=== PATIENT | female | born 1965 | race African-American/Black ===

== ENCOUNTER 2024-03-18 11:10 | Emergency (ER) | payer BC ==
[2024-03-18 13:48] LABS: Absolute Eosinophils 0.1 K/uL (0-0.5); Absolute Lymphocytes (CBC) 2.5 K/uL (0.7-4.9); Absolute Monocytes 0.5 K/uL (0.1-1.3); Absolute Neutrophil 2.5 K/uL (1.8-8.0); Basophils % 0.3 % (0-1.3); Eosinophils % 1.7 % (0-4.4); Hematocrit 31.9 % (36.0-45.0); Lymphocytes % 44.6 % (15.3-44.8); MCH 34.5 pg (27.0-35.0); MCHC 37.6 g/dL (32.0-36.0); MCV 91.7 fL (80-100); MPV 7.4 fL (7.6-11.3); Monocytes % 9.4 % (3.3-12.3); Nucleated Red Blood Cells % 0.2 % (0-0); Platelets 235 thou/uL (152-406); RBC Red Blood Cell Count 3.48 M/uL (3.86-4.86); Red Cell Distribution Width 15.1 % (12.1-15.2)
[2024-03-18 13:53] LABS: Specific Gravity 1.028 (1.005-1.030); Sqamous Epithelial <5 /HPF (None Seen); Urine Bacteria <20 /HPF (<20); Urine Bilirubin NEGATIVE (Negative); Urine Blood Negative (Negative); Urine Clarity Clear (Clear); Urine Color Yellow (Yellow); Urine Culture Reflex Order NOT NEEDED; Urine Glucose NEGATIVE (Negative); Urine Ketones NEGATIVE (Negative); Urine Microscopic Reflex YN ORDER UMIC; Urine Mucus 1+ /HPF (None Seen); Urine Nitrite NEGATIVE (Negative); Urine Protein NEGATIVE (Negative); Urine RBC None Seen /HPF (None Seen); Urine Urobilinogen Normal (Normal); Urine WBC <5 /HPF (<5); Urine pH 5.5 (5.0-7.0)
[2024-03-18 14:03] LABS: Albumin 3.7 g/dL (3.4-5.0); Albumin/Globulin Ratio 0.9 (1.1-1.8); Anion Gap 6.5 mEq/L (5.0-15.0); Globulin 4.1 g/dL (2.3-3.5); Potassium 3.5 mEq/L (3.5-5.1); Protein, Total 7.8 g/dL (6.4-8.2)
--- NOTE | 2024-03-18 14:39 | RAD REPORT ---
EXAMINATION: CT ABDOMEN AND PELVIS WITH CONTRAST CLINICAL INDICATION: abd cramping;Abd pain TECHNIQUE: CT abdomen and pelvis was performed, after the administration of IV contrast, as per depar [facility] protocol. Axial, sagittal and coronal reconstructions were obtained. One or more of the following dose reduction techniques were used: Automated exposure control, adjustment of the mA and k V according to patient size, and iterative reconstruction. Unless otherwise specified, incidental findings do not require dedicated imaging follow-up. COMPARISON: 12/08/2023 FINDINGS: LOWER CHEST: The visualized lung bases are clear. LIVER: Normal in size and contour. No focal lesion. Cholecystectomy clips. SPLEEN: Normal size. No focal lesion. PANCREAS: No mass, ductal dilation, or lupe-pancreatic fluid. ADRENALS: Normal; no mass. KIDNEYS: Normal size and contour. No hydronephrosis. GASTROINTESTINAL TRACT: No evidence of free air, significant intra-abdominal free fluid, bowel obstru ction or abscess. Moderate stool is retained throughout the colon. APPENDIX: Normal appendix. LYMPH NODES: No lymphadenopathy. MUSCULOSKELETAL: Mild lower lumbar spondylosis. ADDITIONAL FINDINGS: None. IMPRESSION: No acute or concerning abnormalities seen in the abdomen or pelvis. Moderate stool retention throughout the colon.
--- NOTE | 2024-03-18 15:27 | EDPHYS ---
Physician Documentation [facility] Name: Linh Gar Age: 58 yrs Sex: Female : 1965 Arrival Date: 03/18/2024 Time: 11:10 Bed 18 Private MD: ED Physician Duy Lo HPI: 03/18 14:04 This 58 yrs old Black Female presents to ER via Ambulatory with complaints of Abdominal sb4 Pain. 14:04 patient reports a vague abdominal cramping/tightness/pain/sensation in her sb4 periumbilical region that has been intermittent for the past few weeks. she reports a history of several abdominal surgeries, last was a hernia repair 1-2 years ago. she denies any nausea, vomiting, diarrhea, or constipation. last BM this morning. Historical: - Allergies: 11:43 PENICILLINS; ll1 - PMHx: 11:43 Diabetes mellitus; Hypertensive disorder; Hypothyroidism; ll1 - PSHx: 11:43 whipple, hernia repair; section; ll1 - Immunization history:: Adult Immunizations up to date. - Infectious Disease History:: Denies. - Social history:: Smoking status: Patient denies any tobacco usage or history of. ROS: 14:04 Constitutional: Negative for fever, chills, and weight loss, sb4 14:04 Abdomen/GI: Positive for abdominal pain, 14:04 All other systems are negative, Exam: 14:04 Constitutional: This is a well developed, well nourished patient who is awake, alert, sb4 and in no acute distress. Head/Face: Normocephalic, atraumatic. Eyes: Extra-ocular motions intact. Periorbital areas with no swelling, redness, or edema. ENT: Mucous membranes moist. Cardiovascular: Regular rate and rhythm with a normal S1 and S2. Respiratory: No increased work of breathing, no retractions or nasal flaring. Abdomen/GI: Soft, non-tender, no distension. Skin: Warm, dry with normal turgor. Normal color with no rashes, no lesions, and no evidence of cellulitis. Vital Signs: 11:41 BP 151 / 87; Pulse 71; Resp 17; Temp 97.2; Pulse Ox 100% ; Weight 79.38 kg; Height 5 ll1 ft. 5 in. ; Pain 5/10; 15:00 BP 150 / 85; Pulse 70; Resp 16; Pulse Ox 100% on R/A; db 11:41 Body Mass Index 29.12 (79.38 kg, 165.1 cm) ll1 11:41 Pain Scale: Adult ll1 MDM: 12:56 Medical Screening Exam initiated sb4 15:26 Data reviewed: vital signs, nurses notes, lab test result(s), radiologic studies, and sb4 as a result, I will discharge patient. Counseling: I had a detailed discussion with the patient and/or guardian regarding the historical points, exam findings, and any diagnostic results supporting the discharge/admit diagnosis, lab results, radiology results, to return to the emergency department if symptoms worsen or persist or if there are any questions or concerns that arise at home. 03/18 13:08 Order name: CBC with Diff; Complete Time: 14:10 sb4 03/18 13:08 Order name: CMP; Complete Time: 14:04 sb4 03/18 13:08 Order name: Lipase; Complete Time: 14:04 sb4 03/18 13:08 Order name: Urinalysis w/ reflexes; Complete Time: 13:54 sb4 03/18 13:08 Order name: CT Abd/Pelvis - IV Contrast Only; Complete Time: 14:40 sb4 03/18 13:08 Order name: IV Saline Lock; Complete Time: 13:55 sb4 03/18 13:08 Order name: Labs collected and sent; Complete Time: 13:55 sb4 Administered Medications: No medications were administered Disposition Summary: 03/18/24 15:26 Discharge Ordered Notes: Location: Home sb4 Problem: an ongoing problem sb4 Symptoms: are unchanged sb4 Condition: Stable sb4 Diagnosis - Abdominal pain, Generalized sb4 - Constipation, unspecified sb4 Followup: sb4 - With: Private Physician - When: As needed - Reason: Recheck today's complaints, Re-evaluation by your physician Discharge Instructions: - Discharge Summary Sheet sb4 - Constipation, Adult sb4 - High-Fiber Eating Plan sb4 - Abdominal Pain, Adult, [id number] sb4 Forms: - Patient Portal Instructions sb4 - Leadership Thank You Letter sb4 Signatures: Dispatcher [employer] Raquel Alaniz RN RN ll1 Chari Gallegos RN RN Argentina Izaguirre PA-C PA-C sb4 Corrections: (The following items were deleted from the chart) 11:43 Allergies: PENICILLINS; ll1 ll1 :43 PMHx: Diabetes mellitus; ll1 ll1 :43 PMHx: Hypertensive disorder; ll1 ll1 : PMHx: Hypothyroidism; ll1 ll1 11:43 PSHx: Coronary Angioplasty; ll1 ll1
--- NOTE | 2024-03-18 15:27 | ER ---
Nurse's Notes [facility] Name: Linh Gar Age: 58 yrs Sex: Female : 1965 Arrival Date: 03/18/2024 Time: 11:10 Bed 18 Private MD: Diagnosis: Abdominal pain, Generalized;Constipation, unspecified Presentation: 03/18 11:41 Chief complaint: Patient states: Stomach pressure off/on for 2-3 weeks, worse since ll1 last night. Coronavirus screen: Client denies travel out of the [place] in the last 14 days. At this time, the client does not indicate any symptoms associated with coronavirus-19. Ebola Screen: Patient denies travel to an Ebola-affected area in the 21 days before illness onset. Onset of symptoms was February 28, 2024. 11:41 Method Of Arrival: Ambulatory ll1 12:04 Acuity: ZOYA 3 iw 12:04 Initial Sepsis Screen: Does the patient meet any 2 criteria? No. Patient's initial iw sepsis screen is negative. Does the patient have a suspected source of infection? No. Patient's initial sepsis screen is negative. Risk Assessment: Do you want to hurt yourself or someone else? Patient reports no desire to harm self or others. Triage Assessment: 11:41 General: Appears uncomfortable, Behavior is calm, cooperative, appropriate for age. ll1 Pain: Complains of pain in abdomen. GI: Reports lower abdominal pain, upper abdominal pain. Historical: - Allergies: 11:43 PENICILLINS; ll1 - PMHx: 11:43 Diabetes mellitus; Hypertensive disorder; Hypothyroidism; ll1 - PSHx: 11:43 whipple, hernia repair; section; ll1 - Immunization history:: Adult Immunizations up to date. - Infectious Disease History:: Denies. - Social history:: Smoking status: Patient denies any tobacco usage or history of. Screenin:38 [facility] ED Fall Risk Assessment (Adult) History of falling in the last 3 months, db including since admission No falls in past 3 months (0 pts) Confusion or Disorientation No (0 pts) Intoxicated or Sedated No (0 pts) Impaired Gait No (0 pts) Mobility Assist Device Used No (0 pt) Altered Elimination No (0 pt) Score/Fall Risk Level 0 - 2 = Low Risk Oriented to surroundings, Maintained a safe environment. Abuse screen: Denies threats or abuse. Denies injuries from another. Nutritional screening: No deficits noted. Tuberculosis screening: No symptoms or risk factors identified. Assessment: 13:38 Reassessment: Patient appears in no apparent distress at this time. Patient and/or db family updated on plan of care and expected duration. Pain level reassessed. Patient is alert, oriented x 3, equal unlabored respirations, skin warm/dry/pink. General: Appears in no apparent distress. comfortable, Behavior is calm, cooperative. Pain: Complains of pain in abdomen. Neuro: Level of Consciousness is awake, alert, obeys commands, Oriented to person, place, time, situation. 15:39 Reassessment: Patient appears in no apparent distress at this time. Patient and/or db family updated on plan of care and expected duration. Pain level reassessed. Patient is alert, oriented x 3, equal unlabored respirations, skin warm/dry/pink. Patient states feeling better. Vital Signs: 11:41 BP 151 / 87; Pulse 71; Resp 17; Temp 97.2; Pulse Ox 100% ; Weight 79.38 kg; Height 5 ll1 ft. 5 in. ; Pain 5/10; 15:00 BP 150 / 85; Pulse 70; Resp 16; Pulse Ox 100% on R/A; db 11:41 Body Mass Index 29.12 (79.38 kg, 165.1 cm) ll1 11:41 Pain Scale: Adult ll1 ED Course: 11:15 Patient arrived in ED. al6 12:04 Argentina Barajas [facility] sb4 12:04 Duy Lo MD is Attending Physician. sb4 12:04 Triage completed. iw 12:04 Arm band placed on. iw 12:55 Patient placed in an exam room, on a stretcher. ll1 13:07 Chari Gallegos, ANNA is Primary Nurse. db 13:37 Initial lab(s) drawn, by me, sent to lab. Inserted saline lock: 22 gauge in left db antecubital area, using aseptic technique. Blood collected. Flushed with 10 mL NS. 14:29 CT Abd/Pelvis - IV Contrast Only In Process Unspecified. EDMS 15:39 Patient has correct armband on for positive identification. Bed in low position. Call db light in reach. Side rails up X 1. Provided Education on: DISCHARGE AND FOLLOWUP. Pulse ox on. NIBP on. Warm blanket given. 15:39 No provider procedures requiring assistance completed. IV discontinued, intact, db bleeding controlled. Administered Medications: No medications were administered Medication: 13:38 VIS not applicable for this client. db Outcome: 15:26 Discharge ordered by MD. bird 15:39 Discharged to home ambulatory, with family, db 15:39 Condition: stable 15:39 Discharge instructions given to patient, family, Instructed on discharge instructions, follow up and referral plans. 15:40 Patient left the ED. db Signatures: Dispatcher [employer] EDMS Keily Gar RN ANNA iw Raquel Ding RN RN ll1 Chari Gallegos RN RN Argentina Izaguirre, PACiara PAShanika Zeng Corrections: (The following items were deleted from the chart) 11:44 11:43 Allergies: PENICILLINS; ll1 ll1 11:44 11:43 PMHx: Diabetes mellitus; ll1 ll1 11:44 11:43 PMHx: Hypertensive disorder; ll1 ll1 11:44 11:43 PMHx: Hypothyroidism; ll1 ll1 11:44 11:43 PSHx: Coronary Angioplasty; ll1 ll1
[2024-03-18 15:53] VITALS: TEMP 97.2; O2SAT 100
[2024-03-18 16:00] VITALS: BP 150/85
== END 2024-03-18 15:40 | disposition home or self-care (01) ==
LOC: ER 11:10
DX: K59.00 Constipation, unspecified (principal)
CPT/HCPCS: 85025; 81001; 36415; 83690; 80053; 74177; 99284; Q9967

== ENCOUNTER 2024-04-25 11:41 | Emergency (ER) | payer BC ==
[2024-04-25] MEDS ORDERED: ONDANSETRON 4 MG/2 ML VIAL ONE (12:17)
[2024-04-25] MEDS ORDERED: LORazepam 2 MG/ML VIAL ONE (12:17)
[2024-04-25] MEDS ORDERED: BISACODYL 10 MG RECTAL SUPP ONE (12:20)
[2024-04-25] MEDS ORDERED: LACTULOSE 20 GM/30 ML UCUP ONE (12:20)
[2024-04-25] MEDS ORDERED: NA CHLORIDE 0.9% 1,000 ML ONE (12:20)
[2024-04-25] MEDS ORDERED: FAMOTIDINE 20 MG/2 ML VIAL IV ONE (12:20)
--- NOTE | 2024-04-25 12:27 | RAD REPORT ---
EXAMINATION: ONE VIEW CHEST XR CLINICAL INDICATION: Female, 58 years old.,Abdominal distention;Palpitations TECHNIQUE: Frontal chest projection is submitted. Examination is limited by patient positioning and t echnique. COMPARISON: No prior exam. FINDINGS: The lungs are well inflated and clear. No pneumothorax or sizable effusion. The heart is normal in s ize. Mediastinal contours are unremarkable. IMPRESSION: No acute intrathoracic abnormalities.
[2024-04-25 12:41] LABS: Absolute Eosinophils 0.1 K/uL (0-0.5); Absolute Lymphocytes (CBC) 2.3 K/uL (0.7-4.9); Absolute Monocytes 0.5 K/uL (0.1-1.3); Absolute Neutrophil 2.1 K/uL (1.8-8.0); Basophils % 0.5 % (0-1.3); Eosinophils % 1.9 % (0-4.4); Hematocrit 40.8 % (36.0-45.0); Hemoglobin 13.5 g/dL (12.0-15.0); Lymphocytes % 46.5 % (15.3-44.8); MCH 27.4 pg (27.0-35.0); MCHC 33.2 g/dL (32.0-36.0); MCV 82.7 fL (80-100); MPV 7.4 fL (7.6-11.3); Neutrophils % 42.1 % (41.7-73.7); Nucleated Red Blood Cells % 0.1 % (0-0); Platelets 251 thou/uL (152-406); RBC Red Blood Cell Count 4.93 M/uL (3.86-4.86); Red Cell Distribution Width 15.3 % (12.1-15.2)
[2024-04-25 12:54] LABS: PT Prothrombin Time 12.6 SECONDS (9.4-12.5); Protime INR 1.2
[2024-04-25 13:12] LABS: Albumin 3.8 g/dL (3.4-5.0); Albumin/Globulin Ratio 0.9 (1.1-1.8); Bilirubin Direct 0.3 mg/dL (0-0.2); Bilirubin Indirect, Calculated 0.8 mg/dL (0.2-0.8); Bilirubin Total 1.1 mg/dL (0.2-1.0); Globulin 4.3 g/dL (2.3-3.5); Protein, Total 8.1 g/dL (6.4-8.2); Thyroid Stimulating Hormone 3.06 uIU/mL (0.358-3.740); Troponin High Sensitivity 3.9 pg/mL (<58.9)
[2024-04-25] MEDS ORDERED: CALCIUM GLUCONATE 1 GM IVPB 1 GM/50 ML BAG IV ONE (14:19)
--- NOTE | 2024-04-25 14:32 | RAD REPORT ---
EXAMINATION: CT ABDOMEN AND PELVIS WITH CONTRAST CLINICAL INDICATION: Female, 58 years old.ABD PAIN TECHNIQUE: CT abdomen and pelvis was performed, after the administration of IV contrast, [facility]. Axial, sagittal and coronal reconstructions were obtained. One or more of the following dose reduction techniques were used: Automated exposure control, adjustment of the mA and/o r kV according to patient size, and/or iterative reconstruction. Unless otherwise specified, incidental findings do not require dedicated imaging follow-up. [id number]. COMPARISON: 03/18/2024 FINDINGS: LOWER CHEST: No acute process identified.Small pericardial effusion. Multivessel coronary artery calc ifications. UPPER GI: Gastrojejunostomy. Whipple procedure. LIVER: No significant focal abnormality. GALLBLADDER/BILE DUCTS: Cholecystectomy. No significant biliary ductal dilatation.?Similar pneumobili a. PANCREAS: Resection of the pancreatic head. No pancreatic duct dilatation. Atrophic residual pancreas .. SPLEEN: Unremarkable. ADRENALS: No adrenal masses. KIDNEYS AND URETERS: No hydronephrosis.No suspicious renal mass. ABDOMINAL AORTA AND OTHER VESSELS: Mild atherosclerotic changes. PERITONEUM: No abnormal free fluid. No free air. LYMPH NODES: No pathologic lymphadenopathy. ABDOMINAL WALL: Unremarkable SMALL BOWEL/COLON: Small bowel has normal course and caliber. No colonic wall thickening or pericolon ic inflammatory changes.Normal appendix. URINARY BLADDER: Underdistended but grossly unremarkable. REPRODUCTIVE ORGANS: Uterus surgically absent. No adnexal abnormality. MUSCULOSKELETAL: No acute or suspicious osseous abnormality. ADDITIONAL FINDINGS: None. IMPRESSION: No acute or significant abnormalities seen in the abdomen or pelvis.
--- NOTE | 2024-04-25 14:53 | ER ---
[facility]'s Notes [facility] Name: Linh Gar Age: 58 yrs Sex: Female : 1965 Arrival Date: 04/25/2024 Time: 11:41 Bed 3 Private MD: Diagnosis: Low back pain;Constipation;Hypokalemia;Type 2 diabetes mellitus with hyperglycemia Presentation: 04/25 12:06 Chief complaint: Patient states: she started manjaro x2 weeks ago and started with kc6 lower back and abd pain on Wednesday. states she is nauseated but can't vomit. last BM x 5 days ago. Coronavirus screen: At this time, the client does not indicate any symptoms associated with coronavirus-19. Ebola Screen: No symptoms or risks identified at this time. Initial Sepsis Screen: Does the patient meet any 2 criteria? No. Patient's initial sepsis screen is negative. Does the patient have a suspected source of infection? No. Patient's initial sepsis screen is negative. Risk Assessment: Do you want to hurt yourself or someone else? Patient reports no desire to harm self or others. Onset of symptoms was April 25, 2024. 12:06 Method Of Arrival: Ambulatory 6 12:06 Acuity: ZOYA 3 kc6 Historical: - Allergies: 12:08 PENICILLINS; kc6 - PMHx: 12:08 Hypothyroidism; Hypertensive disorder; diabetes mellitus; Hypercholesterolemia; kc6 - PSHx: 12:08 section; whipple; Cholecystectomy; Thyroidectomy; hysterectomy; kc6 - Immunization history:: Adult Immunizations up to date. - Infectious Disease History:: Denies. - Social history:: Smoking status: Reported history of juuling and/or vaping. Screenin:09 [facility] ED Fall Risk Assessment (Adult) History of falling in the last 3 months, kc6 including since admission No falls in past 3 months (0 pts) Confusion or Disorientation No (0 pts) Intoxicated or Sedated No (0 pts) Impaired Gait No (0 pts) Mobility Assist Device Used No (0 pt) Altered Elimination No (0 pt) Score/Fall Risk Level 0 - 2 = Low Risk Oriented to surroundings, Maintained a safe environment, Educated pt \T\ family on fall prevention, incl call for assistance when getting out of bed. Abuse screen: Denies threats or abuse. Denies injuries from another. Nutritional screening: No deficits noted. Tuberculosis screening: No symptoms or risk factors identified. Assessment: 12:22 General: Appears in no apparent distress. uncomfortable, well groomed, well developed, kc6 Behavior is cooperative, anxious, crying. Pain: Complains of pain in back and abdomen diffusely Quality of pain is described as dull, heavy, pressure. Neuro: Level of Consciousness is awake, alert, obeys commands, Oriented to person, place, time, situation, Appropriate for age. Cardiovascular: Capillary refill < 3 seconds. Respiratory: Airway is patent Trachea midline Respiratory effort is even, unlabored, Respiratory pattern is regular, symmetrical. GI: Abdomen is flat, non-distended, Last BM was April 20, 2024. Reports lower abdominal pain, upper abdominal pain, constipation, nausea, Patient currently denies diarrhea, vomiting. : No signs and/or symptoms were reported regarding the genitourinary system. EENT: No signs and/or symptoms were reported regarding the EENT system. Derm: No signs and/or symptoms reported regarding the dermatologic system. Skin is intact, is healthy with good turgor, Skin is pink, warm \T\ dry. Musculoskeletal: No signs and/or symptoms reported regarding the musculoskeletal system. Circulation, motion, and sensation intact. Range of motion: intact in all extremities. 14:24 Reassessment: Patient appears in no apparent distress at this time. No changes from kc6 previously documented assessment. Patient and/or family updated on plan of care and expected duration. Pain level reassessed. Patient is alert, oriented x 3, equal unlabored respirations, skin warm/dry/pink. Patient states feeling better. Patient states symptoms have improved. Vital Signs: 12:06 BP 139 / 73; Pulse 75; Resp 18 S; Pulse Ox 99% on R/A; Weight 77.11 kg (R); Height 5 kc6 ft. 4 in. (R); 14:54 BP 140 / 82; Pulse 58; Resp 16 S; Temp 98.3(O); Pulse Ox 98% on R/A; Pain 0/10; kc6 12:06 Body Mass Index 29.18 (77.11 kg, 162.56 cm) [facility] 14:54 Pain Scale: Adult [facility] ED Course: 11:45 Patient arrived in ED. ra3 11:50 Pelon Ventura MD is Attending Physician. johanna 12:06 Fabiana Cid RN is Primary Nurse. kc6 12:08 Triage completed. kc6 12:08 Arm band placed on. kc6 12:08 Patient maintains SpO2 saturation greater than 95% on room air. kc6 12:09 Patient has correct armband on for positive identification. Bed in low position. Call kc6 light in reach. Side rails up X 1. Pulse ox on. NIBP on. Door closed. Noise minimized. Lights dimmed. Pillow given. 12:22 XRAY Chest (1 view) In Process Unspecified. EDMS 12:22 EKG done, by ED staff, reviewed by Pelon Ventura MD. kc6 13:13 Assisted to bathroom. kc6 14:19 CT Abd/Pelvis - PO and IV Contrast In Process Unspecified. EDMS 14:52 Buddy Brand MD is Referral Physician. johanna 15:13 No provider procedures requiring assistance completed. IV discontinued, intact, kc6 bleeding controlled, No redness/swelling at site. Pressure dressing applied. Administered Medications: 12:41 Drug: NS 0.9% IV 1000 ml IV at 1000 ml once; to be given as a bolus over 60 minutes kc6 Route: IV; Rate: 1000 ml; Site: left antecubital; 15:12 Follow up: Response: No adverse reaction; IV Status: Completed infusion; IV Intake: kc6 1000ml 12:41 Drug: Ondansetron IVP 4 mg IVP once; over 2 minutes Route: IVP; Site: left antecubital; kc6 13:27 Follow up: Response: No adverse reaction; Nausea is decreased kc6 12:41 Drug: Famotidine IVP 20 mg IVP once; dilute with 10 mL 0.9% NaCl; give over 2 minutes kc6 Route: IVP; Site: left antecubital; 13:27 Follow up: Response: No adverse reaction kc6 12:42 Drug: Ativan IVP 1 mg IVP once Route: IVP; Site: left antecubital; kc6 13:26 Follow up: Response: No adverse reaction; Anxiety decreased; RASS: Alert and Calm (0) kc6 12:42 Drug: Lactulose PO 30 grams 45 ml PO once Volume: 45 ml; Route: PO; kc6 13:27 Follow up: Response: No adverse reaction kc6 12:58 Drug: Dulcolax TX Suppository 10 mg TX once Route: TX; kc6 13:27 Follow up: Response: No adverse reaction kc6 14:23 Drug: Calcium Gluconate IVPB 1 grams IVPB once over 60 mins; (mix in NS 100 mL) Route: kc6 IVPB; Infused Over: 60 mins; Site: left antecubital; 14:54 Follow up: Response: No adverse reaction; IV Status: Completed infusion; IV Intake: [id number] Medication: 15:13 VIS not applicable for this client. kc6 Intake: 14:54 IV: 50ml; Total: 50ml. kc6 15:12 IV: 1000ml; Total: 1050ml. kc6 Outcome: 14:52 Discharge ordered by . johanna 15:13 Discharged to home ambulatory, with family, kc6 15:13 Condition: improved 15:13 Discharge instructions given to patient, Instructed on discharge instructions, follow up and referral plans. medication usage, Demonstrated understanding of instructions, follow-up care, medications, Prescriptions given X 4, 15:13 Patient left the ED. kc6 Signatures: Dispatcher [employer] EDPelon Ang MD MD cha Campbell, Kaitlyn, RN RN kc6 Lilian Baird ra3
--- NOTE | 2024-04-25 14:53 | EDPHYS ---
Physician Documentation [facility] Name: Linh Gar Age: 58 yrs Sex: Female : 1965 Arrival Date: 04/25/2024 Time: 11:41 Bed 3 Private MD: ED Physician Pelon Ventura HPI: 04/25 12:23 This 58 yrs old Black Female presents to ER via Ambulatory with complaints of Low Back johanna Pain. 12:23 The patient presents with pain that is acute, with no known mechanism of injury. johanna Historical: - Allergies: 12:08 PENICILLINS; kc6 - PMHx: 12:08 Hypothyroidism; Hypertensive disorder; diabetes mellitus; Hypercholesterolemia; kc6 - PSHx: 12:08 section; whipple; Cholecystectomy; Thyroidectomy; hysterectomy; kc6 - Immunization history:: Adult Immunizations up to date. - Infectious Disease History:: Denies. - Social history:: Smoking status: Reported history of juuling and/or vaping. ROS: 12:24 Constitutional: Negative for fever, chills, and weight loss, Eyes: Negative for injury, johanna pain, redness, and discharge, ENT: Negative for injury, pain, and discharge, Neck: Negative for injury, pain, and swelling, Respiratory: Negative for shortness of breath, cough, wheezing, and pleuritic chest pain, Back: Negative for injury and pain, : Negative for injury, bleeding, discharge, and swelling, MS/Extremity: Negative for injury and deformity, Skin: Negative for injury, rash, and discoloration, Neuro: Negative for headache, weakness, numbness, tingling, and seizure, Allergy/Immunology: Negative for hives, rash, and allergies, Endocrine: Negative for neck swelling, polydipsia, polyuria, polyphagia, and marked weight changes, Hematologic/Lymphatic: Negative for swollen nodes, abnormal bleeding, and unusual bruising, 12:24 Cardiovascular: Positive for palpitations, 12:24 Abdomen/GI: Positive for abdominal pain, constipation, abdominal cramps, abdominal distension, 12:24 Back: Positive for pain at rest, 12:24 Neuro: Positive for weakness, 12:24 Psych: Positive for anxiety, Exam: 12:24 Constitutional: This is a well developed, well nourished patient who is awake, alert, johanna and in no acute distress. Head/Face: Normocephalic, atraumatic. Eyes: Pupils equal round and reactive to light, extra-ocular motions intact. Lids and lashes normal. Conjunctiva and sclera are non-icteric and not injected. Cornea within normal limits. Periorbital areas with no swelling, redness, or edema. ENT: Nares patent. No nasal discharge, no septal abnormalities noted. Tympanic membranes are normal and external auditory canals are clear. Oropharynx with no redness, swelling, or masses, exudates, or evidence of obstruction, uvula midline. Mucous membranes moist. Neck: Trachea midline, no thyromegaly or masses palpated, and no cervical lymphadenopathy. Supple, full range of motion without nuchal rigidity, or vertebral point tenderness. No Meningismus. Chest/axilla: Normal chest wall appearance and motion. Nontender with no deformity. No lesions are appreciated. Cardiovascular: Regular rate and rhythm with a normal S1 and S2. No gallops, murmurs, or rubs. Normal PMI, no JVD. No pulse deficits. Respiratory: Lungs have equal breath sounds bilaterally, clear to auscultation and percussion. No rales, rhonchi or wheezes noted. No increased work of breathing, no retractions or nasal flaring. Back: No spinal tenderness. No costovertebral tenderness. Full range of motion. Skin: Warm, dry with normal turgor. Normal color with no rashes, no lesions, and no evidence of cellulitis. MS/ Extremity: Pulses equal, no cyanosis. Neurovascular intact. Full, normal range of motion., bilateral aka Neuro: Awake and alert, GCS 15, oriented to person, place, time, and situation. Cranial nerves II-XII grossly intact. Motor strength 5/5 in all extremities. Sensory grossly intact. Cerebellar exam normal. Normal gait. Psych: Awake, alert, with orientation to person, place and time. Behavior, mood, and affect are within normal limits. 12:24 ECG was reviewed by the Attending Physician. 12:24 Abdomen/GI: Inspection: abdomen appears normal, Bowel sounds: normal, Palpation: moderate abdominal tenderness, in all quadrants, Liver: no appreciated palpable abnormalities, Hernia: not appreciated, Vital Signs: 12:06 BP 139 / 73; Pulse 75; Resp 18 S; Pulse Ox 99% on R/A; Weight 77.11 kg (R); Height 5 6 ft. 4 in. (R); 14:54 BP 140 / 82; Pulse 58; Resp 16 S; Temp 98.3(O); Pulse Ox 98% on R/A; Pain 0/10; kc6 12:06 Body Mass Index 29.18 (77.11 kg, 162.56 cm) [facility] 14:54 Pain Scale: Adult 6 MDM: 11:50 Medical Screening Exam initiated [facility] 12:26 Differential diagnosis: fracture, sciatica, Herniated disc UTI, bowel obstruction, johanna coronary artery disease, gastritis. Data reviewed: vital signs, nurses notes, lab test result(s), EKG, radiologic studies, CT scan, plain films. Consideration of Admission/Observation Escalation of care including admission/observation considered. I considered the following discharge prescriptions or medication management in the emergency department Medications were administered in the Emergency Department. See MAR. Independent interpretation of the following test(s) in the Emergency Department EKG: See my EKG interpretation above. Historians other than the Patient: pt well informed. Care significantly affected by the following chronic conditions: Hypertension, Obesity, hypothyroid. 04/25 12:05 Order name: Basic Metabolic Panel; Complete Time: 13:19 [facility] 04/25 12:05 Order name: CBC with Diff; Complete Time: 13:19 [facility] 04/25 12:05 Order name: LFT's; Complete Time: 13:19 [facility] 04/25 12:05 Order name: Magnesium; Complete Time: 13:19 [facility] 04/25 12:05 Order name: NT PRO-BNP; Complete Time: 13:19 [facility] 04/25 12:05 Order name: PT-INR; Complete Time: 13:19 [facility] 04/25 12:05 Order name: Troponin HS; Complete Time: 13:19 [facility] 04/25 12:05 Order name: Lipase; Complete Time: 13:19 [facility] 04/25 12:05 Order name: TSH; Complete Time: 13:19 [facility] 04/25 13:15 Order name: Calcium; Complete Time: 14:07 04/25 12:05 Order name: XRAY Chest (1 view); Complete Time: 13:19 [facility] 04/25 12:05 Order name: CT Abd/Pelvis - PO and IV Contrast [facility] 04/25 12:05 Order name: Cardiac monitoring; Complete Time: 12:22 [facility] 04/25 12:05 Order name: EKG - Nurse/Tech; Complete Time: 12: [facility] 04/25 12:05 Order name: IV Saline Lock; Complete Time: 12: [facility] 04/25 12:05 Order name: Labs collected and sent; Complete Time: 12: [facility] 04/25 12:05 Order name: O2 Per Protocol; Complete Time: 12: [facility] 04/25 12:05 Order name: O2 Sat Monitoring; Complete Time: 12: [facility] EC:24 Rate is 70 beats/min. Rhythm is regular. QRS [place] is Normal. RI interval is normal. QRS johanna interval is normal. QT interval is prolonged at 501 msec. No Q waves. T waves are Normal. No ST changes noted. Clinical impression: NSR w/ Non-specific ST/T Changes and No evidence of ischemia. Interpreted by me. Reviewed by me. Administered Medications: 12:41 Drug: NS 0.9% IV 1000 ml IV at 1000 ml once; to be given as a bolus over 60 minutes kc6 Route: IV; Rate: 1000 ml; Site: left antecubital; 15:12 Follow up: Response: No adverse reaction; IV Status: Completed infusion; IV Intake: kc6 1000ml 12:41 Drug: Ondansetron IVP 4 mg IVP once; over 2 minutes Route: IVP; Site: left antecubital; kc6 13:27 Follow up: Response: No adverse reaction; Nausea is decreased kc6 12:41 Drug: Famotidine IVP 20 mg IVP once; dilute with 10 mL 0.9% NaCl; give over 2 minutes kc6 Route: IVP; Site: left antecubital; 13:27 Follow up: Response: No adverse reaction kc6 12:42 Drug: Ativan IVP 1 mg IVP once Route: IVP; Site: left antecubital; kc6 13:26 Follow up: Response: No adverse reaction; Anxiety decreased; RASS: Alert and Calm (0) kc6 12:42 Drug: Lactulose PO 30 grams 45 ml PO once Volume: 45 ml; Route: PO; kc6 13:27 Follow up: Response: No adverse reaction kc6 12:58 Drug: Dulcolax RI Suppository 10 mg RI once Route: RI; kc6 13:27 Follow up: Response: No adverse reaction kc6 14:23 Drug: Calcium Gluconate IVPB 1 grams IVPB once over 60 mins; (mix in NS 100 mL) Route: kc6 IVPB; Infused Over: 60 mins; Site: left antecubital; 14:54 Follow up: Response: No adverse reaction; IV Status: Completed infusion; IV Intake: [id number] Disposition Summary: 04/25/24 14:52 Discharge Ordered Notes: Location: Home johanna Problem: new johanna Symptoms: have improved johanna Condition: Stable johanna Diagnosis - Low back pain johanna - Constipation johanna - Hypokalemia johanna - Type 2 diabetes mellitus with hyperglycemia johanna Followup: johanna - With: Private Physician - When: 2 - 3 days - Reason: Recheck today's complaints, Continuance of care, Re-evaluation by your physician Followup: johanna - With: Buddy Brand MD - When: 2 - 3 days - Reason: Recheck today's complaints, Re-evaluation by your physician Discharge Instructions: - Discharge Summary Sheet johanna - Acute Back Pain, Adult johanna - Constipation, Adult johanna - Musculoskeletal Pain johanna - Constipation, Adult, [id number] johanna - Diabetes Mellitus and Nutrition, Adult johanna - Hypocalcemia, Adult johanna - Calcium Content in Foods johanna Forms: - Medication Reconciliation Form johanna - Antibiotic Education johanna - Prescription Opioid Use johanna - Patient Portal Instructions [facility] - Leadership Thank You Letter [facility] Prescriptions: - Calcium 600 with Vitamin D3 - take 1 tablet ORAL route 2 times per day; 28 tablet; Refills: 0, Product johanna Selection Permitted - Dulcolax (bisacodyl) 10 mg Rectal suppository - insert 1 suppository RECTAL route every 12 hours for 5 days; 10 suppository; [facility] Refills: 0, Product Selection Permitted - Hydroxyzine HCl 25 mg Oral tablet - take 1 tablet ORAL route every 6 hours As needed prn anxiety; 30 tablet; [facility] Refills: 0, Product Selection Permitted - Lactulose 10 gram/15 mL Oral Solution - take 30 milliliters ORAL route once daily; 300 milliliter; Refills: 0, Product [facility] Selection Permitted Signatures: Dispatcher [employer] EDPelon Ang MD MD cha Campbell, Kaitlyn, RN RN kc6 Corrections: (The following items were deleted from the chart) 12:06 12:05 BASIC METABOLIC PANEL+C.LAB.BRZ ordered. EDMS EDMS 12:06 12:06 CBC+H.LAB.BRZ ordered. EDMS EDMS 12:06 12:06 HEPATIC FUNCTION+C.LAB.BRZ ordered. EDMS EDMS 12: 12:06 MAGNESIUM+C.LAB.BRZ ordered. EDMS EDMS 12: 12:06 PROBNP+C.LAB.BRZ ordered. EDMS EDMS 12: 12:06 PROTIME (+INR)+COAG.LAB.BRZ ordered. EDMS EDMS 12: 12:06 Troponin High Sensitivity+C.LAB.BRZ ordered. EDMS EDMS : 12:06 LIPASE+C.LAB.BRZ ordered. EDMS EDMS 12: 12:06 THYROID STIMULAT HORMONE+C.LAB.BRZ ordered. EDMS EDMS 12: 12:06 Chest Single View+RAD.RAD.BRZ ordered. EDMS EDMS 12: 12:06 Abdomen Pelvis W Con+CT.RAD.BRZ ordered. EDMS EDMS
[2024-04-25 15:19] VITALS: BP 140/82; TEMP 98.3; O2SAT 98
--- NOTE | 2024-04-27 13:00 | EKG ---
Test Date: 2024-04-25 Test Time: 12:14:59 Call Out Clerk: MARIEL MEASUREMENT RESULTS: Intervals: Rate: 70 AL: 132 QRSD: 76 QT: 464 QTc: 501 [place]: P: 47 AL: 132 QRS: 14 T: 90 INTERPRETIVE STATEMENTS: Normal sinus rhythm Anterior infarct, age undetermined Prolonged QT Abnormal ECG No previous ECG available for comparison Electronically Signed On 04-27-24 12:58:40 MANAGER CARDIAC CATH by Tay Lazo
== END 2024-04-25 15:13 | disposition home or self-care (01) ==
LOC: ER 11:41
DX: M54.50 Low back pain, unspecified (principal); K59.00 Constipation, unspecified; E87.6 Hypokalemia; E11.65 Type 2 diabetes mellitus with hyperglycemia; E03.9 Hypothyroidism, unspecified; I10 Essential (primary) hypertension; E78.00 Pure hypercholesterolemia, unspecified; Z88.0 Allergy status to penicillin; F17.290 Nicotine dependence, other tobacco product, uncomplicated
CPT/HCPCS: 96365; 96361; 93005; 85025; 80048; 36415; 82310; 83735; 85610; 80076; 84443; 84484; 83690; 83880; 74177; 71045; 96375; 99284; Q9967; J0612; J2405; J7030